=== PATIENT | male | born 1955 | race Caucasian/White ===

== ENCOUNTER 2023-08-26 17:49 | Emergency (ER) | payer BC, SELFPAY ==
--- NOTE | ~2023-08-26 | US_ITS ---
EXAMINATION: US VENOUS ULTRASOUND WITH DOPPLER LOWER EXTREMITY, LEFT CLINICAL INFORMATION: Left-sided knee pain COMPARISON: None available. TECHNIQUE: Ultrasound of the deep veins is performed from the hip to the calf with compression sonography and color and pulse Doppler assessment. Spectral analysis with color-flow imaging is performed. FINDINGS: There is normal venous compression and respiratory variation and augmented flow. The visualized common femoral vein, superficial femoral vein, profunda femoral vein, popliteal vein, and the trifurcation region shows no evidence of deep venous thrombosis. There is no significant popliteal fossa cyst. If the patient's symptoms persist, followup ultrasound in 5 days 7 days might be of value to exclude proximal propagation from a non-visualized calf vein. US/US venous duplex LE IMPRESSION: No DVT demonstrated in the left lower extremity.
--- NOTE | ~2023-08-26 | XR_ITS ---
EXAMINATION: XR LUMBOSACRAL SPINE CLINICAL INFORMATION: Radicular pain down the left leg. COMPARISON: None available. TECHNIQUE: Three views of the lumbosacral spine. FINDINGS: No fracture or spondylolisthesis. There is mild right convex curvature in the lumbar spine. Vertebral body heights are normal. [id number] degenerative disc disease at L4-L5 is characterized by loss of vertebral disc height and endplate osteophytes. Minimal degenerative disc disease at the other levels. Facet arthropathy is present in the lower lumbar spine. SI joints are unremarkable. Mild calcific atherosclerosis in the abdominal aorta. No acute soft tissue findings. XR/XR lumbar spine 2-3V IMPRESSION: 1. [id number] degenerative disc disease at L4-L5. 2. Facet arthropathy in the lower lumbar spine. 3. No acute fracture or malalignment.
[2023-08-26 17:58] VITALS: BP 140/70; PULSE 64; RESP 19; TEMP 36.4; O2SAT 97; BMI 36.7
--- NOTE | 2023-08-26 18:06 | ED.GENADULT ---
HPI - General Adult General Chief complaint: Extremity Problem Stated complaint: LT leg pain Time Seen by Provider: 08/26/23 22:09 Source: patient and family Mode of arrival: ambulatory Limitations: no limitations History of Present Illness HPI narrative: patient with left leg pain that woke him from sleep. The pain is constant stops at his knee, denies injury, fever, swelling or redness. He cannot find a comfortable position. The [facility] PMD sent him in to rule out dvt. Patient denies back pain Onset (ago): hour(s) Severity: moderate Quality: burning Pain Consistency: constant Related Data Previous Rx's Medication Instructions Recorded cyclobenzaprine 10 mg tablet 10 mg PO TID #20 tabs 08/26/23 gabapentin 100 mg capsule 100 mg PO TID #30 caps 08/26/23 naproxen 500 mg tablet (Naprosyn) 500 mg PO BID #20 tabs 08/26/23 Allergies Allergy/AdvReac Type Severity Reaction Status Date / Time No Known Allergies Allergy Unverified 07/15/20 17:21 [No Known Allergies*] Review of Systems Review of Systems: Yes all other systems are reviewed and are negative Neurologic: Denies Sensory deficit (Neuro) [facility] Social History Social History Smoked in Last 30 Days: No Use of substances other than those prescribed or required for medical reasons: No Advance Directives: No Physical Exam ED Vital Signs: Vital Signs - 24 hr 08/26/23 17:58 08/26/23 22:09 Temperature 97.5 F 98 F Pulse Rate 64 52 Respiratory Rate 19 19 Blood Pressure 140/70 H 144/76 H Pulse Oximetry 97 97 Oxygen Delivery Method Room Air Room Air BMI result Body Mass Index 36.7 Const General: healthy appearing Nutritional Appearance: average body habitus Orientation/consciousness: oriented to person and patient oriented x3 Limitations: no limitations HENMT Head: Yes normal to inspection Ears: external ears normal General nose exam: Normal external nose present Mouth: Normal oral and palatal mucosa present and oropharynx normal Throat: Yes posterior oropharynx normal Eyes General: appearance normal, both eyes and all related structures Neck Neck: Yes normal visual inspection Chest Chest palpation & inspection: normal inspection of the chest Resp Auscultation: clear to auscultation bilaterally Cardio Jugular venous distension: no JVD Rate: regular rate Rhythm: regular rhythm Heart sounds: S1 normal heart sound present and S2 normal heart sound present GI Inspection: Yes normal to inspection Palpation (GI): Soft to palpation, nontender and No hepatosplenomegaly present Auscultation: normal bowel sounds General: Yes no CVA tenderness Back/Spine/Pelvis Other: no SI or sciatica pain illicited. Back: no CVA tenderness Skin General skin exam: no rashes or lesions noted Neuro General: oriented to person and patient oriented x3 Cranial nerves: Yes CN's II-XII intact bilaterally Motor exam (neuro): 5/5 motor strength present throughout Sensory Exam: No Sensory deficit (Neuro) Extrem Other: no swelling or erythema seen. Could not reproduce the pain General: Yes normal to inspection Psych Appearance: grossly normal Course Course Course Narrative: This is an RME: Additional HPI, ROS, PE not included below will be deferred to primary provider. 68 yo m presents w/ complaints of L sided thigh pain and pain behind the left knee X few days. No trauma told to come to ed to r/o DVT Reevaluation(s) Reevaluation #1: the burning constant pain seems radicular and nerve of origin. Despite that I could not reproduce the pain, his xray shows significant djd. I will treat with gabapentin, nsaids and flexeril Time: 23:39 Medications Administered Discontinued Medications Generic Name Dose Route Start Last Admin Trade Name Alonsoq PRN Reason Stop Dose Admin Cyclobenzaprine HCl 10 mg 08/26/23 21:53 08/26/23 22:01 Cyclobenzaprine Hcl 10 Mg Tablet PO 08/26/23 21:54 10 mg ONCE ONE Administration Gabapentin 100 mg 08/26/23 21:53 08/26/23 22:01 Gabapentin 100 Mg Capsule PO 08/26/23 21:54 100 mg ONCE ONE Administration Ketorolac Tromethamine 60 mg 08/26/23 21:53 08/26/23 22:01 Ketorolac Tromethamine 60 Mg/2 Ml Vial IM 08/26/23 21:54 60 mg ONCE ONE Administration Discharge Plan Discharge Clinical Impression: Acute radicular low back pain Patient Disposition: Home, Self-Care Instructions: Lumbar Radiculopathy (ED) Prescriptions: New cyclobenzaprine 10 mg tablet 10 mg PO TID Qty: 20 0RF naproxen [Naprosyn] 500 mg tablet 500 mg PO BID Qty: 20 0RF gabapentin 100 mg capsule 100 mg PO TID Qty: 30 0RF Referrals: Physician,Unknown J [Primary Care Provider] - 1 week
[2023-08-26] MEDS: Gabapentin 100 MG CAPSULE PO (22:01)
[2023-08-26] MEDS: Ketorolac Tromethamine 60 MG/2 ML VIAL IM (22:01)
[2023-08-26] MEDS: Cyclobenzaprine HCl 10 MG TABLET PO (22:01)
[2023-08-26 22:09] VITALS: BP 144/76; PULSE 52; RESP 19; TEMP 36.6; O2SAT 97
== END 2023-08-26 23:51 | disposition home or self-care (01) ==
PROVIDERS: Emergency Provider Emergency Medicine
DX: R60.0 Localized edema (principal); M79.605 Pain in left leg; M54.50 Low back pain, unspecified
CPT/HCPCS: 72100; 93971; 96372; 99284; J1885